=== PATIENT | female | born 1940 | race Caucasian/White ===

== ENCOUNTER 2019-06-09 05:59 | Inpatient (IN) | payer OTHER ==
[~2019-06-09] VITALS: Ht 160 cm; Wt 95.3 kg
[2019-06-09 06:01] VITALS: BP 142/60
[2019-06-09] MEDS ORDERED: ALENDRONATE SOD70 MG PO (06:17)
[2019-06-09] MEDS ORDERED: ROPINIROLE HCL2 MG PO (06:18)
[2019-06-09] MEDS ORDERED: OXYBUTYNIN 5 MG5 M2 PO (06:20)
[2019-06-09] MEDS ORDERED: CARBIDOPA-LEVO1 EAC2 PO (06:20)
[2019-06-09] MEDS ORDERED: SYNTHROID112 MC1 PO (06:20)
[2019-06-09] MEDS ORDERED: ASPIR 8181 MG PO (06:21)
[2019-06-09] MEDS ORDERED: LORATIDINE 10 M10 M1 PO (06:21)
[2019-06-09 06:29] LABS: ABSOLUTE NEUTROPHILS 15.1 thou/uL (1.4-8.2); BASOPHILS 0.4 % (0.0-2.0); HEMATOCRIT 40.5 % (37.0-47.0); HEMOGLOBIN 13.7 gm/dL (12.0-15.0); LYMPHOCYTES 2.4 % (24.0-44.0); MCH 32.3 pg (26.0-34.0); MCHC 33.8 g/dL (28.0-37.0); MCV 95.7 fL (80.0-100.0); MONOCYTES 4.2 % (1.0-8.0); PLATELET COUNT 201 thou/uL (150-400); RBC 4.23 mil/uL (4.20-5.00); RDW 13.3 % (10.5-14.5); WBC 16.3 thou/uL (4.0-11.0)
[2019-06-09 06:38] LABS: ANION GAP 11 mmol/L (7-16); BUN 18 mg/dL (7-18); CALCIUM 9.9 mg/dL (8.5-10.1); CHLORIDE 99 mmol/L (98-107); CO2 23 mmol/L (21-32); CREATININE 1.1 mg/dL (0.6-1.0); GLUCOSE 121 mg/dL (74-106); POTASSIUM 3.7 mmol/L (3.5-5.1); SODIUM 133 mmol/L (136-145)
[2019-06-09 06:48] LABS: ALBUMIN 2.9 g/dL (3.4-5.0); MAGNESIUM 1.3 mg/dL (1.8-2.4); SGOT 36 U/L (15-37); SGPT 26 U/L (30-65); TOTAL BILIRUBIN 0.5 mg/dL (<0.1-1.0); TOTAL PROTEIN 6.4 g/dL (6.4-8.2); TROPONIN-I <0.06 ng/mL (<0.06)
[2019-06-09 07:33] LABS: URINE BILIRUBIN NEGATIVE (Negative); URINE BLOOD TRACE (Negative); URINE CLARITY CLEAR; URINE COLOR YELLOW; URINE GLUCOSE-RANDOM* NEGATIVE (Negative); URINE KETONES 1+ (Negative); URINE LEUKOCYTES-REFLEX TRACE (Negative); URINE PROTEIN (DIPSTICK) 2+ (Negative); URINE SPECIFIC GRAVITY 1.025 (1.005-1.035)
[2019-06-09 07:36] LABS: URINE NITRITE-REFLEX POSITIVE (Negative)
[2019-06-09 08:07] LABS: CASTS None Seen /LPF (None Seen); MUCUS >6 Heavy strn/LPF (None Seen); SQUAMOUS >10 Many /LPF (0-3)
[2019-06-09 08:08] LABS: BACTERIA-REFLEX >30 Many /HPF (None Seen); CRYSTALS None Seen /LPF (None Seen); URINE RBC 0-2 Rare /HPF (0-2); URINE WBC-REFLEX 6-15 Few /HPF (0-5)
[2019-06-09] MEDS ORDERED: ELIQUIS5 MG PO (09:19)
[2019-06-09 11:43] VITALS: BP 137/46
[2019-06-09 13:27] VITALS: BP 172/70
--- NOTE | 2019-06-09 14:13 | 2DMMODE ---
[facility] [place] [address] 2 D/M-MODE ECHOCARDIOGRAM Name: NUVIAGLEN HIGHTOWER Room #: 170-6 ADM IN .R.#: [id number] Admission: 06/09/19 Attend Phys: Maria Isabel Clancy MD Discharge: Date of : 42 Date of Service: 06/09/19 1413 Report #: [id number] THIS REPORT FOR: //name// APPROVED REPORT Study performed: 06/09/2019 11:53:23 EXAM: Comprehensive 2D, Doppler, and color-flow Echocardiogram Patient Location: ER Room #: 6 Status: routine BSA: 1.89 HR: 110 bpm BP: 150/81 mmHg Rhythm: Tachycardia Other Information Study Quality: Adequate Indications Chest Pain 2D Dimensions IVSd: 9.48 (7-11mm) LVOT Diam: 18.00 (18-24mm) LVDd: 43.97 mm PWd: 8.90 (7-11mm) Ascending Ao: 23.22 (22-36mm) LVDs: 31.45 (25-40mm) Aortic Root: 25.36 mm LV Single Plane 4CH: 57.01 % LV Single Plane 2CH: 58.82 % Biplane EF: 57.2 % Volumes Left Atrial Volume (Systole) Single Plane 4CH: 46.08 mL Single Plane 2CH: 44.10 mL LA ESV Index: 27.00 mL/m2 Aortic Valve AoV Peak Austen.: 1.72 m/s AO Peak Gr.: 11.81 mmHg LVOT Max P.46 mmHg LVOT Max V: 1.06 m/s CONNER Vmax: 1.58 cm2 Mitral Valve E/A Ratio: 0.[address] [facility] [place] [address] [place] [address] 2 D/M-MODE ECHOCARDIOGRAM Name: GLEN PEDERSEN Room #: 170-6 ADM IN ..#: [id number] Admission: 06/09/19 Attend Phys: Maria Isabel Clancy MD Discharge: Date of : 42 Date of Service: 06/09/19 1413 Report #: [id number] MV Decel. Time: 178.24 ms MV E Max Austen.: 1.19 m/s MV A Austen.: 1.42 m/s MV PHT: 51.69 ms IVRT: 55.36 ms TDI E/Lateral E': 10.82 E/Medial E': 13.22 Medial E' Austen.: 0.09 m/s Lateral E' Austen.: 0.11 m/s Pulmonary Valve PV Peak Austen.: 1.31 m/s PV Peak Gr.: 6.84 mmHg Pulmonary Vein P Vein S: 0.74 m/s P Vein A: 0.20 m/s P Vein D: 0.54 m/s P Vein A Dur.: 55.4 msec P Vein S/D Ratio: 1.37 Tricuspid Valve TR Peak Austen.: 3.21 m/s RAP Estimate: 10.00 mmHg TR Peak Gr.: 41.16 mmHg PA Pressure: 51.00 mmHg Left Ventricle The left ventricle is normal size. There is normal LV segmental wall motion. There is normal left ventricular wall thickness. Left ventricular systolic function is normal. The left ventricular ejection fraction is within the normal range. LVEF is 55-60%. Mild diastolic dysfunction is present (impaired relaxation pattern). Right Ventricle The right ventricle is normal size. The right ventricular systolic function is normal. Atria The left atrium size is normal. The right atrium size is normal. Aortic Valve The aortic valve is normal in structure. No aortic regurgitation is present. There is no aortic valvular stenosis. Mitral Valve The mitral valve is normal in structure. [place] [address] 2 D/M-MODE ECHOCARDIOGRAM Name: GLEN PEDERSEN Room #: 170-6 ADM IN [facility]#: [id number] Admission: 06/09/19 Attend Phys: Maria Isabel Clancy MD Discharge: Date of : 42 Date of Service: 06/09/19 1413 Report #: [id number] No evidence of mitral valve stenosis. Tricuspid Valve The tricuspid valve is normal in structure. Mild tricuspid regurgitation. Pulmonary artery pressure is 45 mmHg. Pulmonic Valve The pulmonary valve is normal in structure. There is no pulmonic valvular regurgitation. Great Vessels The aortic root is normal in size. The ascending aorta is normal in size. IVC is normal in size and collapses <50% with inspiration. Pericardium There is no pericardial effusion. <Conclusion> The left ventricle is normal size. There is normal left ventricular wall thickness. Left ventricular systolic function is normal. Mild diastolic dysfunction is present (impaired relaxation pattern). The right ventricle is normal size. The left atrium size is normal. The aortic valve is normal in structure. Trace mitral regurgitation. Mild tricuspid regurgitation. Pulmonary artery pressure is 45 mmHg. <ELECTRONICALLY SIGNED> By: Dickson Silva MD 06/09/19 1413 1413 1413 Dickson Silva MD /INF
[2019-06-09 14:42] VITALS: BP 137/46
[2019-06-09 15:39] VITALS: BP 137/46
[2019-06-09 19:31] VITALS: BP 106/58
--- NOTE | 2019-06-09 19:57 | NUR ---
pt came from ER for UTI , FALLS, pt is A&O X3 , pt is continuing iv ABT, PT has tlynol 650mg po for pain and temp 100.3 F (O), rechek temp 99.3F (o),
[2019-06-10 00:18] VITALS: BP 119/64
--- NOTE | 2019-06-10 01:51 | NUR ---
RESTING QUIETLY TONIGHT. NEEDS ENCOURAGEMENT TO DRINK FLUIDS. SHE IS MORE EASILY AROUSED, AND HAS BEEN COMFORTABLE. CONITNUES ON IV ANTIBIOTICS. SHE IS INCONTINENT OF URINE, SO EXTERNAL FEMALE CATH PLACED.
[2019-06-10 04:04] VITALS: BP 125/71
[2019-06-10 05:27] LABS: HEMATOCRIT 38.6 % (37.0-47.0); HEMOGLOBIN 12.9 gm/dL (12.0-15.0); MCH 32.3 pg (26.0-34.0); MCHC 33.4 g/dL (28.0-37.0); MCV 96.6 fL (80.0-100.0); RDW 13.4 % (10.5-14.5); WBC 12.2 thou/uL (4.0-11.0)
[2019-06-10 05:36] LABS: ANION GAP 8 mmol/L (7-16); BUN 17 mg/dL (7-18); CALCIUM 8.3 mg/dL (8.5-10.1); CHLORIDE 99 mmol/L (98-107); CO2 25 mmol/L (21-32); GLUCOSE 86 mg/dL (74-106); MAGNESIUM 2.1 mg/dL (1.8-2.4); POTASSIUM 3.9 mmol/L (3.5-5.1); SODIUM 132 mmol/L (136-145); TROPONIN-I <0.06 ng/mL (<0.06)
[2019-06-10 08:15] VITALS: BP 133/63
[2019-06-10 15:42] VITALS: BP 119/57
--- NOTE | 2019-06-10 18:51 | NUR ---
pt is A&OX3, pt is continuing IV ABT, PT''s vs are stable, pt gets up to chair with assist, pt denies pain ,n/v and sob, pt has slowly meeting care plan goals.
[2019-06-10 19:07] VITALS: BP 125/74
--- NOTE | 2019-06-10 23:25 | NUR ---
URINE CULTURE CAME BACK POSITIVE FOR GRAN NEATIVE RODS. CALLED DWIGHT ORTA, DISCUSSED IVPB ANTIBIOTICS PT IS RECEIVING. SAID TO FOLLOW THE POC AND NO NEW ORDERS RECEIVED.
[2019-06-11 03:36] VITALS: BP 128/67
--- NOTE | 2019-06-11 06:25 | NUR ---
FOLLOWING POC WITH IVPB ANTIBIOTICS. PT HAS SOME CONFUSION SHE DID NOT BELIEVE I WAS THE WAS AND WANTED COMFIRMATION FROM ANOTHER NURSE. PT STATES NO N/V NOR PAIN. HOURLY ROUNDING.
[2019-06-11 08:02] VITALS: BP 142/77
[2019-06-11 15:40] VITALS: BP 133/62
--- NOTE | 2019-06-11 18:18 | NUR ---
PATIENT HAD THREE BM THIS AM. LOOSE STOOLS. SHE IS CURRENLTY RESTING IN BED. WILL CONT WITH PLAN OF CARE.
[2019-06-11 19:45] VITALS: BP 138/47
[2019-06-12 03:47] VITALS: BP 138/65
--- NOTE | 2019-06-12 06:34 | NUR ---
FOLLOWING POC WITH IVPB. PT REMOVED IV FROM AC LOCATION. NEW 20GA INSERTED. PT UPTO BSC WITH 1X ASSIST. PT STILL SOMEWHAT CONFUSED, EXHIBITED BY THINKING SHE WAS HOME. EXTERNAL CATH IN PLACE WITH GOOD RESULTS. HOURLY ROUNDING.
[2019-06-12 07:44] VITALS: BP 127/52
[2019-06-12 11:45] LABS: HEMATOCRIT 37.3 % (37.0-47.0); HEMOGLOBIN 12.5 gm/dL (12.0-15.0); MCH 31.8 pg (26.0-34.0); MCHC 33.5 g/dL (28.0-37.0); RBC 3.93 mil/uL (4.20-5.00); RDW 13.3 % (10.5-14.5); WBC 11.6 thou/uL (4.0-11.0)
[2019-06-12 15:38] VITALS: BP 135/64
--- NOTE | 2019-06-12 18:22 | NUR ---
PATIEN TO REST IN BED THROUGH THE DAY. PROGRESSING TOWARDS DISCHARGE GOALS. SHE WILL BE TRANSFERED TO 4W THIS PM. FAMILY NOTIFIED. SHE IS ALERT ORIENTED X4. RESPIRATION NON LABORED. NEEDS HELP WITH TRANSFERS TO BEDSIDE COMMODE.
[2019-06-12 20:11] VITALS: BP 140/68
--- NOTE | 2019-06-13 04:22 | NUR ---
Pt. rested quietly at intervals during the night when checked on during frequent rounds. Left lower extremity is edematous, red in color and warm upon touch. Elevated up on a pillow. Bed alarm is on.
[2019-06-13 05:06] VITALS: BP 145/50
[2019-06-13 05:54] LABS: HEMATOCRIT 35.3 % (37.0-47.0); HEMOGLOBIN 11.9 gm/dL (12.0-15.0); MCH 31.9 pg (26.0-34.0); MCHC 33.6 g/dL (28.0-37.0); MCV 95.1 fL (80.0-100.0); RBC 3.71 mil/uL (4.20-5.00); RDW 13.6 % (10.5-14.5); WBC 9.6 thou/uL (4.0-11.0)
[2019-06-13 06:19] LABS: CALCIUM 8.6 mg/dL (8.5-10.1); CREATININE 0.7 mg/dL (0.6-1.0); POTASSIUM 3.5 mmol/L (3.5-5.1)
--- NOTE | 2019-06-13 07:31 | EKG ---
[place] [address] [facility] [place] [address] ELECTROCARDIOGRAM REPORT Name: GLEN PEDERSEN Room #: 451-P ADM IN M.R.#: [id number] Admission: 06/09/19 Attend Phys: Maria Isabel Clancy MD Discharge: Date of : 42 Report #: [id number] THIS REPORT FOR: //name// [facility] ED Test Date: 2019-06-09 Test Time: 06:10:21 Pat Name: GLNE PEDERSEN Department: Room: [facility] Gender: F Environmental Advisor: jamaal : 1940 Requested By: Alireza Sanchez Order Number: [id number] MD: Yuniel Ruiz Measurements Intervals [place] Rate: 117 P: 36 LA: 151 QRS: -6 QRSD: 94 T: -3 QT: 317 QTc: 443 Interpretive Statements Sinus tachycardia Low voltage No previous ECG available for comparison Electronically Signed On 06-13-2019 7:31:24 CDT by Yuniel Ruiz [email or web address] <ELECTRONICALLY SIGNED> By: Yuniel Ruiz MD, [facility] 06/13/19 0731 0610 0610 Yuniel Ruiz MD, FACC /EPI
[2019-06-13 08:15] VITALS: BP 126/57
--- NOTE | 2019-06-13 11:30 | HC ---
[facility] [address] CONSULTATION Name: GLEN PEDERSEN Room #: 451-P ADM IN M.R.#: [id number] Admission: 06/09/19 Attend Phys: Maria Isabel Clancy MD Discharge: Date of : 42 Report #: [id number] THIS REPORT FOR: //name// CC: Denia Clancy DATE OF SERVICE: 06/12/2019 INFECTIOUS DISEASE CONSULTATION REASON FOR CONSULTATION: I was asked to evaluate concerning cellulitis, left lower extremity. HISTORY OF PRESENT ILLNESS: The patient is a 78-year-old with underlying history of Parkinson's disease and has had DVT with bilateral PE, on Xarelto. She reports falling off of her bed and subsequently developed chest pain. Initially worked up for cardiac etiology and that was negative. She was thought to have urinary tract infection, noting many bacteria in the urine with 6-15 wbc's. She was having no dysuria. Later found to have lower extremity cellulitis with lymphangitis left leg. She has had temperature up to 100.9 degrees. Currently afebrile. She has been on broad antibiotic coverage including vancomycin and Unasyn. Denies any prior history of injury to the leg. No recent antibiotics prior to her admission. She denied any fever, chills or sweats. Pain in the left leg has been moderate in degree. Worse with any pressure. Improved with narcotics for pain. ALLERGIES: None known. MEDICATIONS: As noted on her MAR, now on vancomycin and Unasyn. PAST MEDICAL HISTORY: Hysterectomy, Parkinson's, DVT, PE. FAMILY HISTORY: Noncontributory. SOCIAL HISTORY: Nonsmoker, no significant alcohol intake. REVIEW OF SYSTEMS: Ten-point review was negative other than what has been described above. PHYSICAL EXAMINATION: VITAL SIGNS: She is afebrile and hemodynamically stable. GENERAL: Alert, cooperative and pleasant, in no acute distress. She had masked facies. No obvious tremor. SKIN: With cellulitis involving the left lower extremity from ankle to proximal calf. This was markedly tender. She had 1+ edema. No other ulcerations. No tinea pedis. She had evidence of lymphangitis extending up the medial thigh. [facility] [address] [place] [address] CONSULTATION Name: GLEN PEDERSEN Room #: 451-P [facility] IN M.R.#: [id number] Admission: 06/09/19 Attend Phys: Maria Isabel Clancy MD Discharge: Date of : 42 Report #: [id number] No tender adenopathy in the groin. No other adenopathy noted. No other skin lesions noted. No evidence of tinea pedis to the left foot. EYES: Without scleral icterus. MOUTH: Without mucositis. NECK: Supple. LUNGS: Clear. HEART: Regular, without murmur, gallop or rub. ABDOMEN: Soft, nontender, no hepatosplenomegaly or mass. No CVA tenderness. GENITOURINARY: External genitalia without lesion with an external urinary collecting device in place. RECTAL: Not performed. NEUROLOGIC: She was alert and cooperative, was a poor historian. Cranial nerves intact. Strength in the upper and lower extremities was symmetric with general weakness. PSYCHIATRIC: Mood, no evidence of anxiety or depression. LABORATORY STUDIES: Hemoglobin 12.5, WBC 11.6, platelet count 202,000. Sodium 132, potassium 3.9, bicarbonate 25, creatinine 1. Urinalysis with few wbc's, many bacteria. CT of the chest, no evidence of pulmonary infiltrate or emboli. Ultrasound of lower extremity venous Doppler negative for DVT. Blood cultures are negative. IMPRESSION: A 78-year-old with underlying history of Parkinson's disease, had deep venous thrombosis with pulmonary embolism, now presents with left lower extremity cellulitis and lymphangitis. Typically with this presentation, we are dealing with beta hemolytic streptococcus. This will take several weeks to improve. She is not yet resolved the lymphangitis. She will require continued IV antibiotic therapy, leg elevation and heat. We will go with ceftriaxone. If she moves to post-acute care, we can continue with this program. Once lymphangitis resolved, we will then continue with enteral antibiotic therapy. <ELECTRONICALLY SIGNED> By: J Carlos Hutson MD 06/13/19 1130 1604 2146 J Carlos Hutson MD /nt
--- NOTE | 2019-06-13 13:09 | NUR ---
PT ADMITTED RELATED TO CHEST PAIN. CM REVIEWED CHART AND SPOKE WITH CARE TEAM. CM MET WITH PT AND SPOUSE AT BEDSIDE THIS DAY. PT IS A&O X4. CM ROLE INTRODUCED. PT INDICATED SHE LIVES IN A HOUSE WITH HER SPOUSE WITH 2 STEPS TO ENTER AND NONE INSIDE. 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 PT INDICATED THAT SHE HAD NO HH HX, BUT THAT SHE HAD GONE TO [facility] IN THE PAST FOR SHORT TERM POST ACUTE CARE STAY. PT IS RECEPTIVE TO POST ACUTE CARE STAY OR HH SERVICES WHICHEVER IS NEEDED UPON DC. CM TO FOLLOW INDICATED WITH DC PLANNING.
[2019-06-13 14:54] VITALS: BP 152/73
[2019-06-13 19:38] VITALS: BP 123/42
--- NOTE | 2019-06-13 19:41 | NUR ---
PT A&OX4, VSS, DENIES PAIN. ANTIBIOTICS RAN ORDERED. PATIENT ASSISTED IN PHYSICAL THERAPY TODAY. RIGHT LEG WITH CELLULITIS ELEVATED. AT BEDSIDE, WILL CONTINUE TO MONITOR.
--- NOTE | 2019-06-14 04:22 | NUR ---
progress pt a/o x4, vss, reports dull aching pain to left lower extremety from cellulitis leg is red swollen and warm to touch no open areas noted. iv antibiotics continue. sl to lh flushes without difficulty drsg c/d/i. voiding qs clear yellow urine and last bm was 06/12. labs wnl pain controlled with pains meds taking sparingly. tolerating reg diet. working with PT/OT as ordered. continue to monitor.
[2019-06-14 07:54] VITALS: BP 140/64
--- NOTE | 2019-06-14 10:49 | NUR ---
PT A&OX4, VSS, PAIN AND PRESSURE IN LEFT LEG. LEFT LEG ELEVATED, WARM AND COLD COMPRESS APPLIED. MEDICATION GIVEN ORDERED. PATIENT RESTING IN BED. PATIENT DOES NOT WANT PAIN MEDICATION AT THIS TIME. NO SIGNS OF DISTRESS, PATIENT DENIES CHEST PAIN AND SOA, WILL CONTINUE TO MONITOR.
--- NOTE | 2019-06-14 13:26 | NUR ---
ASSUMED PT CARE AT APPROX. 12:30. A&OX4. AMBULATES WITH WALKER, GAIT BELT AND ASSIST X1. IV INTACT IN L HAND. NO CONCERNS AT THIS TIME, SIITING UP IN BED EATING LUNCH. WILL CONT POC.
[2019-06-14 15:02] VITALS: BP 142/59
--- NOTE | 2019-06-14 16:00 | NUR ---
DR. DÍAZ ID INDICATED TO ARRANGE OP INFUSION FOR PT. CM FAXED REC TO OP INFUSION HERE AT THE HOSPITAL. IT APPEARS THEY HAVE LEFT FOR THEM DAY SO CM COULDN'T CONFIRM RECIEPT. PT IS STILL HAVING SOME PAIN AND REDNESS IN THE EXTREMITY SO PT MAY NOT BE MEDICALLY STABLE FOR DC TODAY. CM TO FOLLOW INDICATED WITH DC PLANNING.
[2019-06-14 19:10] VITALS: BP 155/69
[2019-06-15 03:58] VITALS: BP 128/53
--- NOTE | 2019-06-15 06:07 | NUR ---
PROGRESS PT A/O X4 , VSS, UP WITH SBA WALKER AND GAIT BELT. LEFT LOWER LEG RED WARM AND PT REPORTS IT FEELS LIKE IT IS BURNING TODAY. IV ANTIBIOTICS ADMINISTERED ORDERED, PT DENIED NEED FOR PAIN MEDICATION. TOLERATING DIET AND HAS ADEQUATE PO INTAKE. PLAN IS FOR PT TO DC WITH OUTPATIENT IV THERAPY WHEN MEDICALLY STABLE.
[2019-06-15 07:44] VITALS: BP 136/60
[2019-06-15 14:12] VITALS: BP 140/66
--- NOTE | 2019-06-15 18:55 | NUR ---
PT STABLE THROUGHOUT SHIFT. PT UP TO CHAIR FOR SEVERAL HOURS WHICH SHE TOLERATED WELL. POSSIBLE DISCHARGE TOMORROW WITH OP INFUSION. PT RESTING COMFORTABLY.
[2019-06-15 19:00] VITALS: BP 154/57
[2019-06-15 19:35] VITALS: BP 148/74
[2019-06-16 03:22] VITALS: BP 142/56
--- NOTE | 2019-06-16 04:20 | NUR ---
ASSUMED CARE OF PT @1900. PT A&OX4. PT C/O OF MINOR PAIN IN LEFT LEG AND WAS MEDICATED ACCORDINGLY. PT HAS BEEN GETTING UP THROUGH THE NIGHT TO USE THE BR WITH A WALKER. PT IS STEADY ON HER FEET. LEFT LEG WARM AND RED WITH +2 EDEMA NOTED. LEFT LEG ELEVATED WITH PILLOWS. V/S STABLE. WILL CONT TO MONITOR
[2019-06-16 07:42] VITALS: BP 152/75
[2019-06-16 12:15] LABS: URINE BILIRUBIN NEGATIVE (Negative); URINE BLOOD NEGATIVE (Negative); URINE CLARITY CLEAR; URINE COLOR YELLOW; URINE GLUCOSE-RANDOM* NEGATIVE (Negative); URINE KETONES NEGATIVE (Negative); URINE NITRITE-REFLEX NEGATIVE (Negative); URINE PROTEIN (DIPSTICK) NEGATIVE (Negative); URINE SPECIFIC GRAVITY <= 1.005 (1.005-1.035); URINE UROBILINOGEN 0.2 E.U./dl (0.2-1.0)
[2019-06-16 12:20] LABS: URINE LEUKOCYTES-REFLEX 1+ (Negative)
[2019-06-16 12:29] LABS: BACTERIA-REFLEX None Seen /HPF (None Seen); CASTS None Seen /LPF (None Seen); CRYSTALS None Seen /LPF (None Seen); SQUAMOUS >10 Many /LPF (0-3); URINE WBC-REFLEX 0-5 Rare /HPF (0-5)
[2019-06-16 12:30] LABS: URINE RBC None Seen /HPF (0-2)
--- NOTE | 2019-06-16 14:41 | NUR ---
dp sent hh referral to [facility], patient to dc this Wednesday, will need pt, ot and nursing
[2019-06-16 14:42] VITALS: BP 137/51
[2019-06-16 16:00] VITALS: BP 137/51
--- NOTE | 2019-06-16 16:01 | NUR ---
CARE TEAM INDICATED THAT PT WILL LIKELY DC HOME WEDNESDAY. ID INDICATED THAT PT WILL DC ON PO ABX CM NOTIFIED OP INFUSION THAT SHE WILL NO LONGER NEED OP INFUSION SERVICES. REFERRAL SENT TO [facility] THEY ARE ABLE TO ACCEPT PT WITH A SOC ON WEDNESDAY. FAX ORDERS TO . CALL TO NOTIFY OF DISCHARGE.
--- NOTE | 2019-06-16 18:01 | NUR ---
PT STABLE THROUGHOUT SHIFT. PT WORKED WELL WITH PT AND OT AND HAS SHOWN MARKED IMPROVEMENT IN AMBULATION. REDNESS IN LLE HAS ALSO DECREASED. FALLS PRECAUTIONS IN PLACE, FAMILY AT BEDSIDE. PT RESTING COMFORTABLY.
[2019-06-16 20:20] VITALS: BP 131/49
--- NOTE | 2019-06-17 03:21 | NUR ---
ASSUMED CARE OF PT @1900. PT A&OX4. WALKS TO THE BR WITH STANDBY ASSIST AND A WALKER. LLE RED AND WARM, ELEVATED WITH PILLOWS. PT C/O MILD PAIN WHICH IS WELL CONTROLLED WITH TYLENOL. PT IV ON L WRIST INFILTRATED, IV TEAM INSERTED A NEW IV ON RIGHT FOREARM. CM FOLLOWING UP WITH DISCHARGE PLANNING.
[2019-06-17 05:30] VITALS: BP 145/71
[2019-06-17 07:38] VITALS: BP 136/56
--- NOTE | 2019-06-17 14:56 | NUR ---
Assumed pt care this am, left lower extremity is warm to the touch and reddish. PT worked with the pt, she is steady on her gait and is able to ambulate on her own with no aids or walker, though fall risk precautions are still in place. Pt calls appropriately. Edema is noted on the left lowe ext, legs elevated. Compressogrip double layer placed on the left lower leg. Pt verbalized a nagging pain anf itching on the left leg, but did not want any pain medication. POC followed, no signs of distress or verbalizations have been noted.
[2019-06-17 16:02] VITALS: BP 143/67
[2019-06-17 19:51] VITALS: BP 114/41
--- NOTE | 2019-06-18 03:54 | NUR ---
ASSUMED CARE OF PT @1900. PT A&OX4. PT WAS CLEARED BY PHYSICAL THERAPY TO BE ADLIB IN ROOM. EDUCATION WAS DONE ON CALLING FOR HELP AT NIGHT TIME AND PT HAS BEEN VERY COOPERATIVE AND APPROPRATE IN CALLING FOR ASSISTANCE. LEFT LEG LOOKS RED AND WARM. COMPRESSOR ON LEFT LEG IN PLACE. CONT POC. CALL GROSSMAN WITHIN REACH
[2019-06-18 04:34] VITALS: BP 148/73
[2019-06-18 07:13] VITALS: BP 148/70
--- NOTE | 2019-06-18 13:18 | NUR ---
Assumed pt care this am, VS stable pt is up at julien and stable. Pt had minimal coughing episodes during the day same as reported from last night. No signs or verbalizations of distress have been noted. DC orders given, instructions and prescriptions were given to the pt. POC followed, IV removed awaiting for family to picl up the pt for DC.
[2019-06-18] MEDS ORDERED: KEFLEX500 M1 PO (14:17)
[2019-06-18 14:42] VITALS: BP 137/51
== END 2019-06-18 15:26 | disposition home health service (06) | DRG 871 ==
LOC: ER 05:59 → EROBS 08:17 → 4W 08:17 → 3W 14:20 → 4W 06-12 18:40
PROVIDERS: Emergency Medicine; Internal Medicine; ADMIT Internal Medicine
DX: A41.9 Sepsis, unspecified organism (principal); N17.0 Acute kidney failure with tubular necrosis; L03.116 Cellulitis of left lower limb; N39.0 Urinary tract infection, site not specified; R07.9 Chest pain, unspecified; G20 Parkinson's disease; I89.1 Lymphangitis; B96.89 Other specified bacterial agents as the cause of diseases classified elsewhere; B96.20 Unspecified Escherichia coli [E. coli] as the cause of diseases classified elsewhere; E66.9 Obesity, unspecified; K59.00 Constipation, unspecified; S80.822A Blister (nonthermal), left lower leg, initial encounter; X58.XXXA Exposure to other specified factors, initial encounter; E83.42 Hypomagnesemia; Z79.82 Long term (current) use of aspirin; Z79.899 Other long term (current) drug therapy; Z79.01 Long term (current) use of anticoagulants; Z86.718 Personal history of other venous thrombosis and embolism; Z86.711 Personal history of pulmonary embolism; Z90.710 Acquired absence of both cervix and uterus; Z68.37 Body mass index [BMI] 37.0-37.9, adult; Y93.89 Activity, other specified; Y92.89 Other specified places as the place of occurrence of the external cause; Y99.8 Other external cause status
CPT/HCPCS: 10047; 10879

== ENCOUNTER → 2021-11-21 | Outpatient (CLI) | payer OTHER ==
[~2021-11-21] MED LIST: ALENDRONATE SOD70 MG PO; ASPIR 8181 MG PO; CARBIDOPA-LEVO1 EAC2 PO; ELIQUIS5 MG PO; KEFLEX500 M1 PO; LORATIDINE 10 M10 M1 PO; OXYBUTYNIN 5 MG5 M2 PO; ROPINIROLE HCL2 MG PO; SYNTHROID112 MC1 PO
== END ==
LOC: SJCVC 16:25
PROVIDERS: ATTEND Internal Medicine
DX: I11.0 Hypertensive heart disease with heart failure (principal); I50.32 Chronic diastolic (congestive) heart failure; E78.5 Hyperlipidemia, unspecified; G20 Parkinson's disease; K21.9 Gastro-esophageal reflux disease without esophagitis; E03.9 Hypothyroidism, unspecified; M19.90 Unspecified osteoarthritis, unspecified site; Z72.89 Other problems related to lifestyle; Z79.82 Long term (current) use of aspirin; Z79.899 Other long term (current) drug therapy